=== PATIENT | female | born 1995 | race Caucasian/White ===

== ENCOUNTER 2016-04-03 23:32 | Emergency (ER) | payer MEDICAID ==
[2016-04-04] MEDS ORDERED: PENICILLIN V POTASSIUM 500 MG TAB As Ordered ONE (00:31)
--- NOTE | 2016-04-04 00:40 | EDDOCDS ---
Physician Documentation [facility] Name: Moni Toribio Age: 20 yrs Sex: Female : 1995 Arrival Date: 04/03/2016 Time: 23:32 Bed TR7 Private MD: [facility] - Adults Disposition: 04/04/16 00:24 Discharged to Home/Self Care. Impression: Streptococcal pharyngitis, Fever presenting with conditions classified elsewhere - BY HISTORY. - Condition is Stable. - Discharge Instructions: Strep Throat. - Prescriptions for Amoxicillin 875 mg Oral Tablet - take 1 tablet by ORAL route every 12 hours for 10 days; 20 tablet. magic mouthwash Mucous Membrane Solution - as directed 5 milliliters by ORAL route 3-4 times daily As needed GARGLE, SWISH, SPIT. MAALOX, LIQUID BENADRYL, VISCOUS LIDOCAINE. 1:1:1; 237 milliliter. - Medication Reconciliation, Local Pharmacy Hours form. - Follow up: Emergency Department; When: As needed; Reason: Worsening of conditions. Follow up: Private Physician; When: 2 - 3 days; Reason: Wound/Symptom Recheck, Recheck today's complaints, Continuance of care. - Problem is new. - Symptoms are unchanged. Historical: - Allergies: no known allergies; - Home Meds: 1. none - PMHx: Anxiety; Depression; PTSD; Herpes; - PSHx: none; - Social history: Smoking status: Patient uses tobacco products, light tobacco smoker. No barriers to communication noted, The patient speaks fluent [place] Islander. - Family history: Not pertinent. - : The pt / caregiver states he / she is not on anticoagulants. Home medication list is obtained from the patient. - Exposure Risk Screening:: None identified. 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 3 in. (160.02 cm) (R); Pain 10; 04/04 00:38 BP 143 / 64; Pulse 95; Resp 16; Temp 98.4(O); Pulse Ox 97% on R/A; cz 04/03 23:33 Body Mass Index 32.06 (82.10 kg, 160.02 cm) gr2 MDM: 04/03 23:37 Strep Screen, Nursing ordered. dt4 04/04 00:21 Penicillin VK 500 mg PO once ordered. dt4 00:38 Financial registration complete. pm4 Administered Medications: 00:38 Drug: Penicillin VK 500 mg [penicillin V potassium 250 mg tablet (2 tabs)] Route: PO; cz Signatures: La Hdz RN RN [facility] Ike Maxwell RN RN cz Dickerson, Laura, RN RN ld5 Kiley Sanchez PA-C PA-C dt4 Ayan Sanders, Reg Reg pm4 MTDD
--- NOTE | 2016-04-04 00:40 | EDDOCDS ---
Nurse's Notes [facility] Name: Moni Toribio Age: 20 yrs Sex: Female : 1995 Arrival Date: 04/03/2016 Time: 23:32 Bed TR7 Private MD: [facility] - Adults Diagnosis: Streptococcal pharyngitis;Fever presenting with conditions classified elsewhere-BY HISTORY Presentation: 04/03 23:45 Presenting complaint: Patient states: Sore throat since , fevers. Risk factors: [facility] Stridor is not present. Drooling is not present. Shortness of breath is not present. Cellulitis is not present. Adult Sepsis Screening: The patient does not have new or worsening altered mentation. Patient's respiratory rate is less than 22. Systolic blood pressure is greater than 100. Patient has a qSOFA score of 0- Negative Sepsis Screen. Suicide/Homicide risk assessment- the patient denies having any suicidal and/or homicidal ideations and does not present with any other emotional, behavioral or mental health complaints. Status: Patient is not a clinical services consultant or dependent. Transition of care: patient was not received from another setting of care. 23:45 Acuity: LUAN Level 4 [facility] 23:45 Method Of Arrival: Walkin/Carried/Asstd [facility] Triage Assessment: 23:47 General: Appears uncomfortable, Behavior is cooperative. Pain: Location: throat Pain mcp currently is 7 out of 10 on a pain scale. HIV screening NA for this visit Offered previously. Neurological: No deficits noted. Respiratory: Airway is patent Respiratory effort is even, unlabored. Derm: Skin is pink, warm & dry. 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 none - PMHx: Anxiety; Depression; PTSD; Herpes; - PSHx: none; - Social history: Smoking status: Patient uses tobacco products, light tobacco smoker. No barriers to communication noted, The patient speaks fluent Mohawk. - Family history: Not pertinent. - : The pt / caregiver states he / she is not on anticoagulants. Home medication list is obtained from the patient. - Exposure Risk Screening:: None identified. Screenin/05 00:39 Screening information is obtained from the patient. Fall risk: No risks identified. cz Assistance ADL's: requires no assistance with activities of daily living. Abuse/DV Screen: The patient / caregiver reports he/she is: not in a situation that causes fear, pain or injury. Nutritional screening: No deficits noted. Advance Directives: Currently, there is no health care proxy. There is no active DNR order. There is no living will. There is no Power of Director Of Early Childhood. Advance directive information has not previously been placed in an [facility] medical record. Further advance directive information is declined. home support is adequate. Assessment: 00:12 General: Appears in no apparent distress, Behavior is cooperative. Pain: Location: ld5 throat. Neurological: Level of Consciousness is awake, alert. EENT: Throat has enlarged tonsils with gag reflex present, Reports pain when swallowing. Vital Signs: 04/03 23:33 BP 127 / 61; Pulse 97; Resp 18 S; Temp 98.1(O); Pulse Ox 100% on R/A; Weight 82.1 kg gr2 (M); Height 5 ft. 3 in. (160.02 cm) (R); Pain 4/10; 04/04 00:38 BP 143 / 64; Pulse 95; Resp 16; Temp 98.4(O); Pulse Ox 97% on R/A; cz 04/03 23:33 Body Mass Index 32.06 (82.10 kg, 160.02 cm) gr2 Vitals: 04/03 23:33 Log In Time: April 03, 2016 at 23:33. gr2 04/04 00:12 Strep Screen is obtained and tested: Positive. ld5 ED Course: 04/03 23:33 Patient visited by Isaac Werner. gr2 23:33 [facility] is Private Physician. gr2 23:33 Patient moved to Waiting gr2 23:36 Patient visited by Isaac Werner. gr2 23:36 Patient moved to Pre RCE gr2 23:46 Triage Initiated [facility] 23:47 Patient visited by La Hdz RN. [facility] 02 00:00 Patient moved to MTA Wait cz 00:01 Patient moved to I3 / M3 cz 00:12 Kiley Sanchez [facility] dt4 00:12 Rakesh Montgomery DO is Attending Physician. dt4 00:12 Patient visited by Kiley Sanchez PA-C. dt4 00:13 Patient visited by Tatiana Cohen,RN. ld5 00:37 Patient moved to TR7 cz 00:39 The patient / caregiver is instructed regarding the plan of care and ED course. cz 00:39 No IV's were initiated during this patient's visit. No procedures done that require cz assistance. Administered Medications: 00:38 Drug: Penicillin VK 500 mg [penicillin V potassium 250 mg tablet (2 tabs)] Route: PO; cz Order Results: There are currently no results for this order. Outcome: 00:24 Discharge ordered by Provider. dt4 00:38 Discharge Assessment: Patient awake, alert and oriented x 3. No cognitive and/or cz functional deficits noted. Patient verbalized understanding of disposition instructions. patient administered narcotics - no. The following High Risk Discharge criteria are identified: None. Discharged to home ambulatory. Condition: stable. Discharge instructions given to patient, Instructed on discharge instructions, follow up and referral plans. medication usage, Demonstrated understanding of instructions, medications, Pt was receptive of discharge instructions/ teaching. Prescriptions given X 2. No special radiology studies were completed. Property :Personal belongings accompany Pt. 00:40 Patient left the ED. cz Signatures: La Hdz RN RN [facility] Ike Maxwell RN RN cz Dickerson, Laura,KIARA RN [id number] Isaac Werner [facility] Kiley Sanchez PA-C PA-C dt4 [facility]ITAL[facility]ame[facility]
--- NOTE | 2016-04-06 01:40 | EDDOCDS ---
Physician Documentation [facility] Name: Moni Toribio Age: 20 yrs Sex: Female : 1995 Arrival Date: 04/03/2016 Time: 23:32 Bed TR7 Private MD: [facility] - Adults Disposition: 04/04/16 00:24 Discharged to Home/Self Care. Impression: Streptococcal pharyngitis, Fever presenting with conditions classified elsewhere - BY HISTORY. - Condition is Stable. - Discharge Instructions: Strep Throat. - Prescriptions for Amoxicillin 875 mg Oral Tablet - take 1 tablet by ORAL route every 12 hours for 10 days; 20 tablet. magic mouthwash Mucous Membrane Solution - as directed 5 milliliters by ORAL route 3-4 times daily As needed GARGLE, SWISH, SPIT. MAALOX, LIQUID BENADRYL, VISCOUS LIDOCAINE. 1:1:1; 237 milliliter. - Medication Reconciliation, Local Pharmacy Hours form. - Follow up: Emergency Department; When: As needed; Reason: Worsening of conditions. Follow up: Private Physician; When: 2 - 3 days; Reason: Wound/Symptom Recheck, Recheck today's complaints, Continuance of care. - Problem is new. - Symptoms are unchanged. Historical: - Allergies: no known allergies; - Home Meds: 1. none - PMHx: Anxiety; Depression; PTSD; Herpes; - PSHx: none; - Social history: Smoking status: Patient uses tobacco products, light tobacco smoker. No barriers to communication noted, The patient speaks fluent [place]. - Family history: Not pertinent. - : The pt / caregiver states he / she is not on anticoagulants. Home medication list is obtained from the patient. - Exposure Risk Screening:: None identified. 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 3 in. (160.02 cm) (R); Pain 10; 04/04 00:38 BP 143 / 64; Pulse 95; Resp 16; Temp 98.4(O); Pulse Ox 97% on R/A; cz 04/03 23:33 Body Mass Index 32.06 (82.10 kg, 160.02 cm) gr2 MDM: 04/03 23:37 Strep Screen, Nursing ordered. dt4 04/04 00:21 Penicillin VK 500 mg PO once ordered. dt4 00:38 Financial registration complete. pm4 00:55 [facility] Payment Agreement was scanned into [employer] and attached to record. pm4 10:56 T-Sheet-- Draft Copy was scanned into [employer] and attached to record. gb Administered Medications: 00:38 Drug: Penicillin VK 500 mg [penicillin V potassium 250 mg tablet (2 tabs)] Route: PO; cz Signatures: La Hdz RN RN mcp Ike Maxwell RN RN cz Aura Mccarthy, Reg Reg gb Tatiana Cohen,RN RN ld5 Kiley Sanchez, JOSE R PANanda dt4 Ayan Sanders, Reg Reg pm4 The chart was reviewed and I authenticate all verbal orders and agree with the evaluation and treatment provided.Attachments: 00:55 [facility] Payment Agreement pm4 10:56 T-Sheet-- Draft Copy gb Chart Complete MTDD
--- NOTE | 2016-04-06 01:40 | EDDOCDS ---
Nurse's Notes [facility] Name: Moni Toribio Age: 20 yrs Sex: Female : 1995 Arrival Date: 04/03/2016 Time: 23:32 Bed TR7 Private MD: [facility] - Adults Diagnosis: Streptococcal pharyngitis;Fever presenting with conditions classified elsewhere-BY HISTORY Presentation: 04/03 23:45 Presenting complaint: Patient states: Sore throat since , fevers. Risk factors: [facility] Stridor is not present. Drooling is not present. Shortness of breath is not present. Cellulitis is not present. Adult Sepsis Screening: The patient does not have new or worsening altered mentation. Patient's respiratory rate is less than 22. Systolic blood pressure is greater than 100. Patient has a qSOFA score of 0- Negative Sepsis Screen. Suicide/Homicide risk assessment- the patient denies having any suicidal and/or homicidal ideations and does not present with any other emotional, behavioral or mental health complaints. 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 Transition of care: patient was not received from another setting of care. 23:45 Acuity: LUNA Level 4 [facility] 23:45 Method Of Arrival: Walkin/Carried/Asstd [facility] Triage Assessment: 23:47 General: Appears uncomfortable, Behavior is cooperative. Pain: Location: throat Pain mcp currently is 7 out of 10 on a pain scale. HIV screening NA for this visit Offered previously. Neurological: No deficits noted. Respiratory: Airway is patent Respiratory effort is even, unlabored. Derm: Skin is pink, warm & dry. 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 Historical: - Allergies: no known allergies; - Home Meds: 1. none - PMHx: Anxiety; Depression; PTSD; Herpes; - PSHx: none; - Social history: Smoking status: Patient uses tobacco products, light tobacco smoker. No barriers to communication noted, The patient speaks fluent Belarusian. - Family history: Not pertinent. - : The pt / caregiver states he / she is not on anticoagulants. Home medication list is obtained from the patient. - Exposure Risk Screening:: None identified. Screenin/05 00:39 Screening information is obtained from the patient. Fall risk: No risks identified. cz Assistance ADL's: requires no assistance with activities of daily living. Abuse/DV Screen: The patient / caregiver reports he/she is: not in a situation that causes fear, pain or injury. Nutritional screening: No deficits noted. Advance Directives: Currently, there is no health care proxy. There is no active DNR order. There is no living will. There is no Power of Lead Quality Technician. Advance directive information has not previously been placed in an [facility] medical record. Further advance directive information is declined. home support is adequate. Assessment: 00:12 General: Appears in no apparent distress, Behavior is cooperative. Pain: Location: ld5 throat. Neurological: Level of Consciousness is awake, alert. EENT: Throat has enlarged tonsils with gag reflex present, Reports pain when swallowing. Vital Signs: 04/03 23:33 BP 127 / 61; Pulse 97; Resp 18 S; Temp 98.1(O); Pulse Ox 100% on R/A; Weight 82.1 kg gr2 (M); Height 5 ft. 3 in. (160.02 cm) (R); Pain 4/10; 04/04 00:38 BP 143 / 64; Pulse 95; Resp 16; Temp 98.4(O); Pulse Ox 97% on R/A; cz 04/03 23:33 Body Mass Index 32.06 (82.10 kg, 160.02 cm) gr2 Vitals: 04/03 23:33 Log In Time: April 03, 2016 at 23:33. gr2 04/04 00:12 Strep Screen is obtained and tested: Positive. ld5 ED Course: 04/03 23:33 Patient visited by Isaac Werner. gr2 23:33 [facility] is Private Physician. gr2 23:33 Patient moved to Waiting gr2 23:36 Patient visited by Isaac Werner. gr2 23:36 Patient moved to Pre RCE gr2 23:[address] [facility] 23:47 Patient visited by La Hdz RN. [facility] 02 00:00 Patient moved to MTA Wait cz 00:01 Patient moved to I3 / M3 cz 00:12 [facility]iley [facility]. dt4 00:12 Rakesh Montgomery DO is Attending Physician. dt4 00:12 Patient visited by Kiley Sanchez PA-C. dt4 00:13 Patient visited by Tatiana Cohen,RN. ld5 00:37 Patient moved to TR7 cz 00:39 The patient / caregiver is instructed regarding the plan of care and ED course. cz 00:39 No IV's were initiated during this patient's visit. No procedures done that require cz assistance. 00:55 [facility] Payment Agreement was scanned into [employer] and attached to record. pm4 10:56 T-Sheet-- Draft Copy was scanned into [employer] and attached to record. gb Administered Medications: 00:38 Drug: Penicillin VK 500 mg [penicillin V potassium 250 mg tablet (2 tabs)] Route: PO; cz Order Results: There are currently no results for this order. Outcome: 00:24 Discharge ordered by Provider. dt4 00:38 Discharge Assessment: Patient awake, alert and oriented x 3. No cognitive and/or cz functional deficits noted. Patient verbalized understanding of disposition instructions. patient administered narcotics - no. The following High Risk Discharge criteria are identified: None. Discharged to home ambulatory. Condition: stable. Discharge instructions given to patient, Instructed on discharge instructions, follow up and referral plans. medication usage, Demonstrated understanding of instructions, medications, Pt was receptive of discharge instructions/ teaching. Prescriptions given X 2. No special radiology studies were completed. Property :Personal belongings accompany Pt. 00:40 Patient left the ED. cz Signatures: La Hdz, RN RN [facility] Ike Maxwell RN RN cz Aura Mccarthy, Reg Reg gb Tatiana Cohen,RN RN ld5 Isaac Werner gr2 Kiley Sanchez PA-C PA-C dt4 Ayan Sanders, Reg Reg pm4 Chart Complete MTDD
--- NOTE | 2016-04-06 01:40 | EDDOCDS ---
Physician Documentation [facility] Name: Moni Toribio Age: 20 yrs Sex: Female : 1995 Arrival Date: 04/03/2016 Time: 23:32 Bed TR7 Private MD: [facility] - Adults Disposition: 04/04/16 00:24 Discharged to Home/Self Care. Impression: Streptococcal pharyngitis, Fever presenting with conditions classified elsewhere - BY HISTORY. - Condition is Stable. - Discharge Instructions: Strep Throat. - Prescriptions for Amoxicillin 875 mg Oral Tablet - take 1 tablet by ORAL route every 12 hours for 10 days; 20 tablet. magic mouthwash Mucous Membrane Solution - as directed 5 milliliters by ORAL route 3-4 times daily As needed GARGLE, SWISH, SPIT. MAALOX, LIQUID BENADRYL, VISCOUS LIDOCAINE. 1:1:1; 237 milliliter. - Medication Reconciliation, Local Pharmacy Hours form. - Follow up: Emergency Department; When: As needed; Reason: Worsening of conditions. Follow up: Private Physician; When: 2 - 3 days; Reason: Wound/Symptom Recheck, Recheck today's complaints, Continuance of care. - Problem is new. - Symptoms are unchanged. Historical: - Allergies: no known allergies; - Home Meds: 1. none - PMHx: Anxiety; Depression; PTSD; Herpes; - PSHx: none; - Social history: Smoking status: Patient uses tobacco products, light tobacco smoker. No barriers to communication noted, The patient speaks fluent Macedonian. - Family history: Not pertinent. - : The pt / caregiver states he / she is not on anticoagulants. Home medication list is obtained from the patient. - Exposure Risk Screening:: None identified. 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 3 in. (160.02 cm) (R); Pain 10; 04/04 00:38 BP 143 / 64; Pulse 95; Resp 16; Temp 98.4(O); Pulse Ox 97% on R/A; cz 04/03 23:33 Body Mass Index 32.06 (82.10 kg, 160.02 cm) gr2 MDM: 04/03 23:37 Strep Screen, Nursing ordered. dt4 04/04 00:21 Penicillin VK 500 mg PO once ordered. dt4 00:38 Financial registration complete. pm4 00:55 [facility] Payment Agreement was scanned into [employer] and attached to record. pm4 10:56 T-Sheet-- Draft Copy was scanned into [employer] and attached to record. gb Administered Medications: 00:38 Drug: Penicillin VK 500 mg [penicillin V potassium 250 mg tablet (2 tabs)] Route: PO; cz Signatures: La Hdz RN RN mcp Ike Maxwell RN RN cz Aura Mccarthy, Reg Reg gb Tatiana Cohen,RN RN ld5 Kiley Sanchez, JOSE R PANanda dt4 Ayan Sanders, Reg Reg pm4 The chart was reviewed and I authenticate all verbal orders and agree with the evaluation and treatment provided.Attachments: 00:55 [facility] Payment Agreement pm4 10:56 T-Sheet-- Draft Copy gb Chart Complete MTDD
== END 2016-04-04 00:40 | disposition home or self-care (01) ==
LOC: M ED 23:32
DX: J02.0 Streptococcal pharyngitis (principal); R50.9 Fever, unspecified; F41.9 Anxiety disorder, unspecified; F32.9 Major depressive disorder, single episode, unspecified; F43.10 Post-traumatic stress disorder, unspecified; B00.9 Herpesviral infection, unspecified; F17.200 Nicotine dependence, unspecified, uncomplicated

== ENCOUNTER 2016-04-21 21:36 | Emergency (ER) | payer MEDICAID ==
[2016-04-21] MEDS ORDERED: diazePAM 5 MG TAB As Ordered ONE (21:54)
[2016-04-21] MEDS ORDERED: NAPROXEN 250 MG TAB As Ordered ONE (21:54)
--- NOTE | 2016-04-21 22:38 | EDDOCDS ---
Physician Documentation [facility] Name: Moni Toribio Age: 20 yrs Sex: Female : 1995 Arrival Date: 04/21/2016 Time: 21:36 Bed PD Private MD: [facility] Disposition: 04/21/16 22:26 Discharged to Home/Self Care. Impression: Sprain of interphalangeal joint of right thumb. - Condition is Stable. - Discharge Instructions: Thumb Sprain. - Prescriptions for Naprosyn 500 mg Oral Tablet - take 1 tablet by ORAL route 2 times per day take with food; 30 tablet. - Medication Reconciliation, Work Release Form - 1 day form. - Follow up: [facility]; When: Call to arrange an appointment; Reason: Wound/Symptom Recheck, Recheck today's complaints, Worsening of conditions, Continuance of care. - Problem is new. - Symptoms are unchanged. Historical: - Allergies: no known allergies; - Home Meds: 1. none - PMHx: Anxiety; Depression; Herpes; PTSD; - PSHx: none; - Social history: Smoking status: Patient uses tobacco products, current every day smoker. No barriers to communication noted, The patient speaks fluent [place]ig. - Family history: Not pertinent. - : The pt / caregiver states he / she is not on anticoagulants. Home medication list is obtained from the patient. - Exposure Risk Screening:: None identified. 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 3 in. (160.02 cm) (R); Pain 8/10; 21:37 Body Mass Index 34.72 (88.90 kg, 160.02 cm) gr2 MDM: 21:49 Fingers: thumb Ordered. EDMS 21:52 Naproxen 500 mg PO once; administer with food or milk ordered. cc10 21:52 Diazepam 5 mg PO once ordered. cc10 22:16 Financial registration complete. daniella 22:16 [facility] Payment Agreement was scanned into [employer] and attached to record. gb Administered Medications: 21:59 Drug: Naproxen 500 mg [naproxen 250 mg tablet (2 tabs)] Route: PO; ttb 21:59 Drug: Diazepam 5 mg [diazepam 5 mg tablet (1 tabs)] Route: PO; ttb 22:37 Follow up: Response: Confirmed pt not driving.; No Adverse Reaction ttb Signatures: Dispatcher [employer] EDMS Aura Mccarthy, Reg Reg gb Kimberly Becker RN RN ttb Santy Stovall, PA-C PA-C cc10 Ester EricksonRN RN tm5 The chart was reviewed and I authenticate all verbal orders and agree with the evaluation and treatment provided.Attachments: 22:16 [facility] Payment Agreement gb MTDD
--- NOTE | 2016-04-21 22:38 | EDDOCDS ---
Nurse's Notes [facility] Name: Moni Toribio Age: 20 yrs Sex: Female : 1995 Arrival Date: 04/21/2016 Time: 21:36 Bed PD Private MD: [facility] Diagnosis: Sprain of interphalangeal joint of right thumb Presentation: 04/21 21:40 Presenting complaint: Patient states: per pt was at work tonight & she had a severe tm5 cramp/spasms in her right hand & thinks that her right thumb is dislocated. Adult Sepsis Screening: The patient does not have new or worsening altered mentation. Patient's respiratory rate is less than 22. Systolic blood pressure is greater than 100. Patient has a qSOFA score of 0- Negative Sepsis Screen. Suicide/Homicide risk assessment- the patient denies having any suicidal and/or homicidal ideations and does not present with any other emotional, behavioral or mental health complaints. 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 Transition of care: patient was not received from another setting of care. 21:40 Acuity: LUNA Level 4 tm5 21:40 Method Of Arrival: Walkin/Carried/Asstd tm5 Triage Assessment: 21:42 General: Appears in no apparent distress, Behavior is appropriate for age, cooperative. tm5 Pain: Location: palmar aspect of distal phalanx of right thumb and palmar aspect of proximal phalanx of right thumb Pain currently is 5 out of 10 on a pain scale. Pt Declines HIV testing. Neurological: Level of Consciousness is awake, alert, Oriented to person, place, time. Respiratory: Airway is patent Respiratory effort is even, unlabored, Respiratory pattern is regular, symmetrical. Derm: Skin is pink, warm & dry. Musculoskeletal: Reports pain in palmar aspect of distal phalanx of right thumb and palmar aspect of proximal phalanx of right thumb. 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 none - PMHx: Anxiety; Depression; Herpes; PTSD; - PSHx: none; - Social history: Smoking status: Patient uses tobacco products, current every day smoker. No barriers to communication noted, The patient speaks fluent Kazakh. - Family history: Not pertinent. - : The pt / caregiver states he / she is not on anticoagulants. Home medication list is obtained from the patient. - Exposure Risk Screening:: None identified. Screenin:43 Screening information is obtained from the patient. Fall risk: No risks identified. tm5 Assistance ADL's: requires no assistance with activities of daily living. Abuse/DV Screen: The patient / caregiver reports he/she is: not in a situation that causes fear, pain or injury. Nutritional screening: No deficits noted. Advance Directives: Currently, there is no health care proxy. There is no active DNR order. home support is adequate. Assessment: 21:59 General: Appears in no apparent distress, well nourished, Behavior is cooperative, ttb pleasant. Pain: Location: right thumb/hand. Neurological: Level of Consciousness is awake, alert. Respiratory: No deficits noted. Derm: Skin is normal. 22:34 Reassessment: Patient appears in no apparent distress at this time. Patient states ttb feeling better. Patient states symptoms have improved. pt states she is walking home. ROM improved after meds.. Neurological: Level of Consciousness is awake, alert. Respiratory: No deficits noted. Airway is patent Respiratory effort is even, unlabored. GI: Denies nausea, vomiting. Vital Signs: 21:37 BP 131 / 73; Pulse 96; Resp 18 S; Temp 97.4(O); Pulse Ox 100% on R/A; Weight 88.9 kg gr2 (R); Height 5 ft. 3 in. (160.02 cm) (R); Pain 8/10; 21:37 Body Mass Index 34.72 (88.90 kg, 160.02 cm) gr2 Vitals: 21:37 Log In Time: April 21, 2016 at 21:37. gr2 ED Course: 21:37 Patient visited by Isaac Werner. gr2 21:37 [facility] is Private Physician. gr2 21:37 Patient moved to Waiting gr2 21:39 Patient visited by Isaac Werner. gr2 21:39 Patient moved to Pre RCE gr2 21:42 Triage Initiated tm5 21:43 Patient moved to Triage 1 tm5 21:49 [facility] cc10 21:50 Jordana Schaefer MD is Attending Physician. cc10 21:50 Patient visited by Santy Stovall PA-C. cc10 21:50 Patient visited by Santy Stovall PA-C. cc10 21:59 The patient / caregiver is instructed regarding the plan of care and ED course. Patient ttb has correct armband on for positive identification. 21:59 No IV's were initiated during this patient's visit. No procedures done that require ttb assistance. 22:00 Patient visited by Kimberly Becker RN. ttb 22:00 Patient moved to 2 ttb 22:16 [facility] Payment Agreement was scanned into [employer] and attached to record. gb 22:23 Patient moved to ttb 22:26 [facility] is Referral Physician. cc10 Administered Medications: 21:59 Drug: Naproxen 500 mg [naproxen 250 mg tablet (2 tabs)] Route: PO; ttb 21:59 Drug: Diazepam 5 mg [diazepam 5 mg tablet (1 tabs)] Route: PO; ttb 22:37 Follow up: Response: Confirmed pt not driving.; No Adverse Reaction ttb Order Results: There are currently no results for this order. Outcome: 21:59 No special radiology studies were completed. Property :Personal belongings accompany Pt.ttb 22:26 Discharge ordered by Provider. cc10 22:34 Discharge Assessment: Patient awake, alert and oriented x 3. No cognitive and/or ttb functional deficits noted. Patient verbalized understanding of disposition instructions. Patient awake and alert. patient administered narcotics - yes. Pt provided with safe discharge. The following High Risk Discharge criteria are identified: None. Discharged to home ambulatory. Condition: good Condition: stable Condition: improved. Discharge instructions given to patient, Instructed on discharge instructions, follow up and referral plans. medication usage, no driving heavy equipment, Rest, Ice, Compression and Elevation. Demonstrated understanding of instructions, medications, RICE, no d/d tonight after meds Pt was receptive of discharge instructions/ teaching. Work note provided to patient. 22:37 Patient left the ED. ttb Signatures: Aura Mccarthy, Reg Reg gb Kimberly Becker, RN RN ttb Isaac Werner gr2 Santy Stovall PA-C PA-C cc10 Matice,Ester,RN RN tm5 MTDD
--- NOTE | 2016-04-22 08:01 | REP ---
RIGHT THUMB: The bone density, osseous, joint and soft tissue structures are normal. No fracture or dislocation. IMPRESSION: Normal thumb. Unreviewed
--- NOTE | 2016-04-23 23:38 | EDDOCDS ---
Physician Documentation [facility] Name: Moni Toribio Age: 20 yrs Sex: Female : 1995 Arrival Date: 04/21/2016 Time: 21:36 Bed PD Private MD: [facility] Disposition: 04/21/16 22:26 Discharged to Home/Self Care. Impression: Sprain of interphalangeal joint of right thumb. - Condition is Stable. - Discharge Instructions: Thumb Sprain. - Prescriptions for Naprosyn 500 mg Oral Tablet - take 1 tablet by ORAL route 2 times per day take with food; 30 tablet. - Medication Reconciliation, Work Release Form - 1 day form. - Follow up: [facility]; When: Call to arrange an appointment; Reason: Wound/Symptom Recheck, Recheck today's complaints, Worsening of conditions, Continuance of care. - Problem is new. - Symptoms are unchanged. Historical: - Allergies: no known allergies; - Home Meds: 1. none - PMHx: Anxiety; Depression; Herpes; PTSD; - PSHx: none; - Social history: Smoking status: Patient uses tobacco products, current every day smoker. No barriers to communication noted, The patient speaks fluent Romanian. - Family history: Not pertinent. - : The pt / caregiver states he / she is not on anticoagulants. Home medication list is obtained from the patient. - Exposure Risk Screening:: None identified. 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 3 in. (160.02 cm) (R); Pain 8/10; 21:37 Body Mass Index 34.72 (88.90 kg, 160.02 cm) gr2 MDM: 21:49 Fingers: thumb Ordered. EDMS 21:52 Naproxen 500 mg PO once; administer with food or milk ordered. cc10 21:52 Diazepam 5 mg PO once ordered. cc10 22:16 Financial registration complete. 22:16 [facility] Payment Agreement was scanned into [employer] and attached to record. gb 04/22 18:11 T-Sheet-- Draft Copy was scanned into [employer] and attached to record. klr Administered Medications: 04/21 21:59 Drug: Naproxen 500 mg [naproxen 250 mg tablet (2 tabs)] Route: PO; ttb 21:59 Drug: Diazepam 5 mg [diazepam 5 mg tablet (1 tabs)] Route: PO; ttb 22:37 Follow up: Response: Confirmed pt not driving.; No Adverse Reaction ttb Signatures: Dispatcher [employer] EDMS Aura Mccarthy, Reg Reg gb Kimberly Becker, RN RN ttb Santy Stovall PA-C PAMeganC cc10 Divya Chauhan Tonya,RN RN tm5 The chart was reviewed and I authenticate all verbal orders and agree with the evaluation and treatment provided.Attachments: 22:16 [facility] Payment Agreement 04/22 18:11 T-Sheet-- Draft Copy klr Chart Complete MTDD
--- NOTE | 2016-04-23 23:38 | EDDOCDS ---
Physician Documentation [facility] Name: Moni Toribio Age: 20 yrs Sex: Female : 1995 Arrival Date: 04/21/2016 Time: 21:36 Bed PD Private MD: [facility] Disposition: 04/21/16 22:26 Discharged to Home/Self Care. Impression: Sprain of interphalangeal joint of right thumb. - Condition is Stable. - Discharge Instructions: Thumb Sprain. - Prescriptions for Naprosyn 500 mg Oral Tablet - take 1 tablet by ORAL route 2 times per day take with food; 30 tablet. - Medication Reconciliation, Work Release Form - 1 day form. - Follow up: [facility]; When: Call to arrange an appointment; Reason: Wound/Symptom Recheck, Recheck today's complaints, Worsening of conditions, Continuance of care. - Problem is new. - Symptoms are unchanged. Historical: - Allergies: no known allergies; - Home Meds: 1. none - PMHx: Anxiety; Depression; Herpes; PTSD; - PSHx: none; - Social history: Smoking status: Patient uses tobacco products, current every day smoker. No barriers to communication noted, The patient speaks fluent Libyan. - Family history: Not pertinent. - : The pt / caregiver states he / she is not on anticoagulants. Home medication list is obtained from the patient. - Exposure Risk Screening:: None identified. 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 3 in. (160.02 cm) (R); Pain 8/10; 21:37 Body Mass Index 34.72 (88.90 kg, 160.02 cm) gr2 MDM: 21:49 Fingers: thumb Ordered. EDMS 21:52 Naproxen 500 mg PO once; administer with food or milk ordered. cc10 21:52 Diazepam 5 mg PO once ordered. cc10 22:16 Financial registration complete. 22:16 [facility] Payment Agreement was scanned into [employer] and attached to record. gb 04/22 18:11 T-Sheet-- Draft Copy was scanned into [employer] and attached to record. klr Administered Medications: 04/21 21:59 Drug: Naproxen 500 mg [naproxen 250 mg tablet (2 tabs)] Route: PO; ttb 21:59 Drug: Diazepam 5 mg [diazepam 5 mg tablet (1 tabs)] Route: PO; ttb 22:37 Follow up: Response: Confirmed pt not driving.; No Adverse Reaction ttb Signatures: Dispatcher [employer] EDMS Aura Mccarthy, Reg Reg gb Kimberly Becker, RN RN ttb Santy Stovall PA-C PAMeganC cc10 Divya Chauhan Tonya,RN RN tm5 The chart was reviewed and I authenticate all verbal orders and agree with the evaluation and treatment provided.Attachments: 22:16 [facility] [place] Payment Agreement 04/22 18:11 T-Sheet-- Draft Copy klr Chart Complete MTDD
--- NOTE | 2016-04-23 23:38 | EDDOCDS ---
Nurse's Notes [facility] Name: Moni Toribio Age: 20 yrs Sex: Female : 1995 Arrival Date: 04/21/2016 Time: 21:36 Bed PD Private MD: [facility] Diagnosis: Sprain of interphalangeal joint of right thumb Presentation: 04/21 21:40 Presenting complaint: Patient states: per pt was at work tonight & she had a severe tm5 cramp/spasms in her right hand & thinks that her right thumb is dislocated. Adult Sepsis Screening: The patient does not have new or worsening altered mentation. Patient's respiratory rate is less than 22. Systolic blood pressure is greater than 100. Patient has a qSOFA score of 0- Negative Sepsis Screen. Suicide/Homicide risk assessment- the patient denies having any suicidal and/or homicidal ideations and does not present with any other emotional, behavioral or mental health complaints. 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 Transition of care: patient was not received from another setting of care. 21:40 Acuity: LUNA Level 4 tm5 21:40 Method Of Arrival: Walkin/Carried/Asstd tm5 Triage Assessment: 21:42 General: Appears in no apparent distress, Behavior is appropriate for age, cooperative. tm5 Pain: Location: palmar aspect of distal phalanx of right thumb and palmar aspect of proximal phalanx of right thumb Pain currently is 5 out of 10 on a pain scale. Pt Declines HIV testing. Neurological: Level of Consciousness is awake, alert, Oriented to person, place, time. Respiratory: Airway is patent Respiratory effort is even, unlabored, Respiratory pattern is regular, symmetrical. Derm: Skin is pink, warm & dry. Musculoskeletal: Reports pain in palmar aspect of distal phalanx of right thumb and palmar aspect of proximal phalanx of right thumb. 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 none - PMHx: Anxiety; Depression; Herpes; PTSD; - PSHx: none; - Social history: Smoking status: Patient uses tobacco products, current every day smoker. No barriers to communication noted, The patient speaks fluent Belarusian. - Family history: Not pertinent. - : The pt / caregiver states he / she is not on anticoagulants. Home medication list is obtained from the patient. - Exposure Risk Screening:: None identified. Screenin:43 Screening information is obtained from the patient. Fall risk: No risks identified. tm5 Assistance ADL's: requires no assistance with activities of daily living. Abuse/DV Screen: The patient / caregiver reports he/she is: not in a situation that causes fear, pain or injury. Nutritional screening: No deficits noted. Advance Directives: Currently, there is no health care proxy. There is no active DNR order. home support is adequate. Assessment: 21:59 General: Appears in no apparent distress, well nourished, Behavior is cooperative, ttb pleasant. Pain: Location: right thumb/hand. Neurological: Level of Consciousness is awake, alert. Respiratory: No deficits noted. Derm: Skin is normal. 22:34 Reassessment: Patient appears in no apparent distress at this time. Patient states ttb feeling better. Patient states symptoms have improved. pt states she is walking home. ROM improved after meds.. Neurological: Level of Consciousness is awake, alert. Respiratory: No deficits noted. Airway is patent Respiratory effort is even, unlabored. GI: Denies nausea, vomiting. Vital Signs: 21:37 BP 131 / 73; Pulse 96; Resp 18 S; Temp 97.4(O); Pulse Ox 100% on R/A; Weight 88.9 kg gr2 (R); Height 5 ft. 3 in. (160.02 cm) (R); Pain 8/10; 21:37 Body Mass Index 34.72 (88.90 kg, 160.02 cm) gr2 Vitals: 21:37 Log In Time: April 21, 2016 at 21:37. gr2 ED Course: 21:37 Patient visited by Isaac Werner. gr2 21:37 [facility] is Private Physician. gr2 21:37 Patient moved to Waiting gr2 21:39 Patient visited by Isaac Werner. gr2 21:39 Patient moved to Pre RCE gr2 21:42 Triage Initiated tm5 21:43 Patient moved to Triage 1 tm5 21:49 [facility] St[facility]all [facility] cc10 21:50 Jordana Schaefer MD is Attending Physician. cc10 21:50 Patient visited by Santy Stovall PA-C. cc10 21:50 Patient visited by Santy Stovall PA-C. cc10 21:59 The patient / caregiver is instructed regarding the plan of care and ED course. Patient ttb has correct armband on for positive identification. 21:59 No IV's were initiated during this patient's visit. No procedures done that require ttb assistance. 22:00 Patient visited by Kimberly Becker RN. ttb 22:00 Patient moved to TR2 ttb 22:16 [facility] Payment Agreement was scanned into [employer] and attached to record. 22: Patient moved to PD ttb 22:26 [facility] is Referral Physician. cc10 04/22 08:33 Fingers: thumb Returned. EDMS 18:11 T-Sheet-- Draft Copy was scanned into [employer] and attached to record. klr Administered Medications: 04/21 21:59 Drug: Naproxen 500 mg [naproxen 250 mg tablet (2 tabs)] Route: PO; ttb 21:59 Drug: Diazepam 5 mg [diazepam 5 mg tablet (1 tabs)] Route: PO; ttb 22:37 Follow up: Response: Confirmed pt not driving.; No Adverse Reaction ttb Order Results: Radiology Order: Fingers: thumb Test: Fingers: thumb REASON FOR EXAMINATION: Deformity/Swelling; ; RIGHT THUMB:; ; The bone density, osseous, joint and soft tissue structures are normal.; ; No fracture or dislocation.; ; IMPRESSION:; Normal thumb.; ; ; ; Unreviewed; Outcome: 21:59 No special radiology studies were completed. Property :Personal belongings accompany Pt.ttb 22:26 Discharge ordered by Provider. cc10 22:34 Discharge Assessment: Patient awake, alert and oriented x 3. No cognitive and/or ttb functional deficits noted. Patient verbalized understanding of disposition instructions. Patient awake and alert. patient administered narcotics - yes. Pt provided with safe discharge. The following High Risk Discharge criteria are identified: None. Discharged to home ambulatory. Condition: good Condition: stable Condition: improved. Discharge instructions given to patient, Instructed on discharge instructions, follow up and referral plans. medication usage, no driving heavy equipment, Rest, Ice, Compression and Elevation. Demonstrated understanding of instructions, medications, RICE, no d/d tonight after meds Pt was receptive of discharge instructions/ teaching. Work note provided to patient. 22:37 Patient left the ED. ttb Signatures: Dispatcher [employer] EDMS Aura Mccarthy, Reg Reg Kimberly Willson, RN RN ttb Isaac Werner gr2 Santy Stovall PAMeganC PA-C cc10 Divya Chauhan Tonya,RN RN tm5 Chart Complete MTDD
== END 2016-04-21 22:37 | disposition home or self-care (01) ==
LOC: M ED 21:36
DX: M79.644 Pain in right finger(s) (principal); F41.9 Anxiety disorder, unspecified; F32.9 Major depressive disorder, single episode, unspecified; B00.9 Herpesviral infection, unspecified; F43.10 Post-traumatic stress disorder, unspecified; F17.210 Nicotine dependence, cigarettes, uncomplicated

== ENCOUNTER 2016-04-30 15:54 | Emergency (ER) | payer MEDICAID ==
[~2016-04-30] VITALS: Ht 160 cm; Wt 88.9 kg
[2016-04-30] MEDS ORDERED: ALEV220C2 PO (16:01)
[2016-04-30 16:59] VITALS: BP 125/71
--- NOTE | 2016-04-30 17:03 | REP ---
RIGHT HAND, FOUR VIEWS: There is no evidence of an acute fracture, dislocation or intrinsic bone disease. IMPRESSION: No fracture or dislocation. Signed by Theodore Olson MD 04/30/2016 08:37 P
[2016-04-30] MEDS ORDERED: NAPR500T PO (17:26)
== END 2016-04-30 17:43 | disposition home or self-care (01) ==
LOC: M ED 16:41
DX: M25.541 Pain in joints of right hand (principal); F17.210 Nicotine dependence, cigarettes, uncomplicated

== ENCOUNTER 2016-05-11 11:02 | Emergency (ER) | payer MEDICAID ==
[~2016-05-11] VITALS: Ht 160 cm; Wt 88.9 kg
[~2016-05-11 11:02] MED LIST: ALEV220C2 PO; NAPR500T PO
[2016-05-11 11:07] VITALS: BP 142/81
== END 2016-05-11 12:41 | disposition home or self-care (01) ==
LOC: M ED 11:18
DX: J06.9 Acute upper respiratory infection, unspecified (principal); F17.210 Nicotine dependence, cigarettes, uncomplicated

== ENCOUNTER 2016-07-23 17:14 | Emergency (ER) | payer MEDICAID ==
[~2016-07-23] VITALS: Ht 157.5 cm; Wt 81.6 kg
[2016-07-23] MEDS ORDERED: KETOROLAC 60 MG/2 ML VIAL (J1885) IM ONE (17:45)
[2016-07-23 19:06] VITALS: BP 111/71
--- NOTE | 2016-08-05 09:24 | REP ---
Clinical: Left lower quadrant/adnexal pain . Technique: Transabdominal pelvic ultrasound followed by transvaginal examination for better evaluation of the endometrium and adnexa with color Doppler evaluation of the ovaries. Findings: Bladder is unremarkable and measures 4.1 x 2.4 x 2.1 cm . Normal anteverted uterus measures 7.6 x 3.0 x 3.7 cm . The endometrial complex measures 4.5 mm thickness. No discrete uterine or endometrial abnormalities are appreciated. Bilateral ovaries are normal in appearance and vascularity without evidence for torsion. Right ovary measures 3.0 x 1.2 x 1.6 cm ; R I = 0.51 . Left ovary measures 2.5 x 2.6 x 3.0 cm with 2.3 cm dominant follicle ; R I = 0.50 . No pelvic fluid or adnexal mass lesion . Impression: 1. Dominant follicle in the left ovary. Otherwise normal ovaries without torsion. 2. Normal uterus. No free fluid. Signed by Jovanny Storm MD 07/23/2016 06:53 P
== END 2016-07-23 19:04 | disposition home or self-care (01) ==
LOC: M ED 17:45
DX: N94.6 Dysmenorrhea, unspecified (principal)
CPT/HCPCS: 76830; 76856; 81001; 81025; 87210; 87491; 87591; 93976; 96372; 99284; J1885

== ENCOUNTER 2016-10-13 15:05 | Emergency (ER) | payer MEDICAID ==
[~2016-10-13] VITALS: Ht 157.5 cm; Wt 93.1 kg
[2016-10-13 16:58] VITALS: BP 128/63
== END 2016-10-13 16:59 | disposition home or self-care (01) ==
LOC: M ED 15:05
DX: R25.1 Tremor, unspecified (principal); Z72.0 Tobacco use

== ENCOUNTER 2016-10-29 11:05 | Emergency (ER) | payer MEDICAID ==
[~2016-10-29] VITALS: Ht 157.5 cm; Wt 81.8 kg
[2016-10-29] MEDS ORDERED: NS 1,000 ML IV ONE (12:30)
[2016-10-29] MEDS ORDERED: KETOROLAC 30 MG/ML VIAL (J1885) IV ONE (12:30)
[2016-10-29] MEDS ORDERED: ONDANSETRON 4MG/2ML VIAL (J2405) IV ONE (12:30)
[2016-10-29 13:03] LABS: BASO % 0.2 % (0.0-1.0); EOS # 0.2 K/mm3 (0.0-0.50); EOS % 1.3 % (0.0-3.0); LARGE UNSTAINED CELL # 0.2 K/mm3 (0.0-0.4); LARGE UNSTAINED CELL % 1.4 % (0.0-4.0); LYMPH % 18.3 % (24.0-44.0); MEAN CORPUSCULAR HEMOGLOBIN 31.3 pg (27.0-33.0); MEAN CORPUSCULAR HGB CONC 33.7 g/dl (32.0-36.5); MEAN CORPUSCULAR VOLUME 92.9 fl (80.0-96.0); MONO # 0.7 K/mm3 (0.0-0.8); MONO % 4.5 % (0.0-5.0); NEUTROPHILS # 11.4 K/mm3 (1.8-7.7); NEUTROPHILS % 74.2 % (36.0-66.0); PLATELET COUNT, AUTOMATED 180 k/mm3 (150-450); WHITE BLOOD COUNT 15.4 K/mm3 (4.0-10.0)
[2016-10-29 13:15] LABS: CONTROL LINE MONO INT CTR LINE PRESENT
[2016-10-29 13:21] LABS: ALBUMIN 3.7 GM/DL (3.2-5.2); ALBUMIN/GLOBULIN RATIO 0.82 (1.00-1.93); ALKALINE PHOSPHATASE 99 U/L (45-117); ALT/SGPT 15 U/L (12-78); ANION GAP 5 MEQ/L (8-16); AST/SGOT 9 U/L (15-37); BILIRUBIN,DIRECT < 0.1 MG/DL (0.0-0.2); BILIRUBIN,TOTAL 0.2 MG/DL (0.2-1.0); BLOOD UREA NITROGEN 9 MG/DL (7-18); CALCIUM LEVEL 8.4 MG/DL (8.5-10.1); CARBON DIOXIDE LEVEL 30 MEQ/L (21-32); CHLORIDE LEVEL 105 MEQ/L (98-107); CREATININE FOR GFR 0.99 MG/DL (0.55-1.02); GLOMERULAR FILTRATION RATE > 60.0 (>60); GLUCOSE, FASTING 83 MG/DL (70-105); POTASSIUM SERUM 3.6 MEQ/L (3.5-5.1); SODIUM LEVEL 140 MEQ/L (136-145); TOTAL PROTEIN 8.2 GM/DL (6.4-8.2)
[2016-10-29] MEDS ORDERED: ISOVUE-370 76% 100ML VIAL (Q9967) As Ordered ONE (13:37)
[2016-10-29] MEDS ORDERED: CIPR-249 PO (14:32)
[2016-10-29] MEDS ORDERED: ZOFR4TAB3 PO (14:33)
[2016-10-29 14:44] VITALS: BP 103/64
--- NOTE | 2016-10-29 19:02 | REP ---
CT abdomen pelvis with IV but without oral contrast: History: Left-sided abdominal pain. Comparison study: 05/29/2014. CT contrast dose: 100 ml of intravenous Isovue [address] findings: Digital preliminary bookseamer blindstitch radiograph is unremarkable. The lung bases show minimal linear density consistent with fibrosis versus plate-like atelectasis in the left lower lobe. No pleural effusion is evident. The liver and the spleen are normal in size homogeneous in texture. No adrenal lesion is seen. The gallbladder is contracted and unremarkable. No pancreatic abnormality is observed. Small and large intestinal bowel loops are normal in the abdomen and pelvis. A normal appendix is seen in the right lower abdomen. Normal-sized mesenteric lymph nodes are seen in small bowel mesentery. Urinary bladder is unremarkable. The uterus is tipped somewhat to the right but is intact. There is a small cyst 2.7 cm in diameter in the right ovary. No abdominal wall defect is seen. Bone window settings show no bony destructive lesion. Impression: 2.7 cm follicle cyst right ovary. Normal appendix seen. No acute abdominal or pelvic abnormality. Signed by Costa Cueto MD 11/02/2016 08:18 A
== END 2016-10-29 14:50 | disposition home or self-care (01) ==
LOC: M ED 11:05
DX: N39.0 Urinary tract infection, site not specified (principal); Z72.0 Tobacco use
CPT/HCPCS: 74177; 80048; 80076; 81001; 83690; 85025; 86308; 87086; 96374; 96375; 99283; J1885; J2405; Q9967

== ENCOUNTER 2017-04-05 13:21 | Emergency (ER) | payer MEDICAID ==
[2017-04-05 15:57] LABS: BASO # 0.1 10^3/uL (0.0-0.2); BASO % 0.3 % (0.0-1.0); EOS # 0.2 10^3/uL (0.0-0.50); EOS % 1.1 % (0.0-3.0); HEMATOCRIT 39.9 % (36.0-47.0); HEMOGLOBIN 13.4 g/dl (12.0-16.0); IMMATURE GRANULOCYTE # 0.1 10^3/uL (0-0); IMMATURE GRANULOCYTE % 0.3 % (0-0); LYMPH # 3.2 10^3/uL (1.5-6.5); LYMPH % 21.3 % (24.0-44.0); MEAN CORPUSCULAR HEMOGLOBIN 30.1 pg (27.0-33.0); MEAN CORPUSCULAR HGB CONC 33.6 g/dl (32.0-36.5); MEAN CORPUSCULAR VOLUME 89.7 fl (80.0-96.0); MONO # 0.9 10^3/uL (0.0-0.8); MONO % 5.7 % (0.0-5.0); NEUTROPHILS # 10.6 10^3/uL (1.8-7.7); NEUTROPHILS % 71.3 % (36.0-66.0); PLATELET COUNT, AUTOMATED 191 10^3/uL (150-450); RED BLOOD COUNT 4.45 10^6/uL (4.00-5.40); RED CELL DISTRIBUTION WIDTH 13.3 % (11.5-14.5); WHITE BLOOD COUNT 14.9 10^3/uL (4.0-10.0)
[2017-04-05 16:10] LABS: KETONE, URINE AUTO RFX NEGATIVE (NEGATIVE); LEUKOCYTE ESTERASE UR AUTO RFX 3+ (NEGATIVE); NITRITE, URINE AUTO RFX NEGATIVE (NEGATIVE); RBC, URINE AUTO RFX 6 /HPF (0-3); SPECIFIC GRAVITY UR AUTO RFX 1.021 (1.002-1.035); SQUAM EPITHELIAL CELL UR AURFX 12 /HPF (0-6); WBC, URINE AUTO RFX 23 /HPF (0-3)
[2017-04-05 16:14] LABS: CONTROL LINE HCG INT CTR LINE PRESENT; HCG, SERUM QUALITATIVE NEGATIVE (NEGATIVE)
[2017-04-05 16:21] LABS: ANION GAP 6 MEQ/L (8-16); BLOOD UREA NITROGEN 13 MG/DL (7-18); CALCIUM LEVEL 8.4 MG/DL (8.5-10.1); CARBON DIOXIDE LEVEL 28 MEQ/L (21-32); CHLORIDE LEVEL 105 MEQ/L (98-107); CREATININE FOR GFR 0.61 MG/DL (0.55-1.30); GLOMERULAR FILTRATION RATE > 60.0 (>60); GLUCOSE, FASTING 88 MG/DL (70-100); POTASSIUM SERUM 3.9 MEQ/L (3.5-5.1); SODIUM LEVEL 139 MEQ/L (136-145)
[2017-04-05] MEDS ORDERED: ISOVUE-370 76% 100ML VIAL (Q9967) As Ordered (16:24)
== END 2017-04-05 17:57 | disposition home or self-care (01) ==
LOC: M ED 13:21
DX: N30.01 Acute cystitis with hematuria (principal); F90.9 Attention-deficit hyperactivity disorder, unspecified type; F41.9 Anxiety disorder, unspecified; F33.9 Major depressive disorder, recurrent, unspecified; F17.210 Nicotine dependence, cigarettes, uncomplicated; Z86.69 Personal history of other diseases of the nervous system and sense organs
CPT/HCPCS: Q9967

== ENCOUNTER 2021-07-20 11:51 | Emergency (ER) | payer MEDICAID, OTHER ==
[~2021-07-20] VITALS: Ht 157.5 cm; Wt 96.0 kg
[2021-07-20 11:51] VITALS: BP 128/74
[~2021-07-20 11:51] MED LIST changes: +AMOX875T; +BACT800T5 PO; +CIPR-249 PO; +NAPR-837 PO; -NAPR500T PO; +PYRI1TAB5 PO; +VENTAER IN; +ZOFR4TAB14 PO
== END 2021-07-20 13:58 | disposition home or self-care (01) ==
LOC: M ED 11:51
DX: S60.212A Contusion of left wrist, initial encounter (principal); W23.0XXA Caught, crushed, jammed, or pinched between moving objects, initial encounter; Y92.89 Other specified places as the place of occurrence of the external cause; Y99.0 Civilian activity done for income or pay; F41.9 Anxiety disorder, unspecified; F43.10 Post-traumatic stress disorder, unspecified; F17.210 Nicotine dependence, cigarettes, uncomplicated

== ENCOUNTER 2022-03-13 02:23 | Emergency (ER) | payer MEDICAID, OTHER ==
[~2022-03-13] VITALS: Ht 157.5 cm; Wt 94.6 kg
[2022-03-13 02:24] VITALS: BP 144/99
== END 2022-03-13 04:04 | disposition left against medical advice (07) ==
LOC: M ED 02:23
DX: Z53.21 Procedure and treatment not carried out due to patient leaving prior to being seen by health care provider (principal)

== ENCOUNTER 2022-06-11 12:06 | Inpatient (IN) | payer OTHER, SELFPAY ==
[~2022-06-11] VITALS: Ht 157.5 cm; Wt 96.9 kg
[2022-06-11] MEDS ORDERED: ISOVUE-370 76% 100ML VIAL As Ordered ONE (14:24)
[2022-06-11 14:36] LABS: BASO # 0.1 10^3/uL (0.0-0.2); BASO % 0.4 % (0.0-1.0); EOS # 0.2 10^3/uL (0.0-0.5); HEMOGLOBIN 13.4 g/dl (12.0-15.5); LYMPH # 3.5 10^3/uL (1.5-5.0); LYMPH % 20.6 % (24.0-44.0); MEAN CORPUSCULAR HEMOGLOBIN 30.5 pg (27.0-33.0); MEAN CORPUSCULAR HGB CONC 32.7 g/dl (32.0-36.5); MEAN CORPUSCULAR VOLUME 93.2 fl (80.0-96.0); MONO # 0.7 10^3/uL (0.0-0.8); NEUTROPHILS # 12.6 10^3/uL (1.5-8.5); NEUTROPHILS % 73.7 % (36.0-66.0); PLATELET COUNT, AUTOMATED 229 10^3/uL (150-450); WHITE BLOOD COUNT 17.2 10^3/uL (4.0-10.0)
[2022-06-11 15:08] LABS: RSV AMPLIFICATION NEGATIVE (NEGATIVE)
[2022-06-11 15:09] LABS: MONO SCRN NEGATIVE (NEGATIVE)
[2022-06-11] MEDS ORDERED: PIPERACILLIN/TAZOBACTAM SOD 4.5 GM in D5W MINI-BAG PLUS 50 ML IV ONE (15:25)
[2022-06-11] MEDS ORDERED: ACETAMINOPHEN 500 MG TAB PO PRN (16:20)
[2022-06-11] MEDS ORDERED: oxyCODONE 5MG TAB PO PRN (16:20)
[2022-06-11] MEDS ORDERED: KETOROLAC 30 MG/ML 1ML VIAL IV PRN (16:20)
[2022-06-11] MEDS ORDERED: PROMETHAZINE 25MG/ML 1ML VIAL IV PRN (16:20)
[2022-06-11] MEDS ORDERED: SENOKOT S TAB PO PRN (16:25)
[2022-06-11] MEDS ORDERED: NICOTINE 21MG/24HR 1 EA TRANSDERMAL TD ONE (16:40)
[2022-06-11] MEDS ORDERED: NS 1,000 ML IV ONE (17:15)
[2022-06-11] MEDS ORDERED: KETOROLAC 30 MG/ML 1ML VIAL IV ONE (17:15)
[2022-06-11] MEDS ORDERED: MIDOTAB PO (17:17)
[2022-06-11] MEDS ORDERED: HOME MED LIST COMPLETE! XX SCH (17:20)
[2022-06-11] MEDS ORDERED: VANCOMYCIN HCL 1,000 MG, VIAL MATE ADAPTER 1 EACH in NS 250 ML IV ONE (17:30)
[2022-06-11 18:00] VITALS: BP 146/87
[2022-06-11] MEDS: LACTOBACILLUS ACIDOPHILUS CAP (BACID) PO SCH (18:38)
[2022-06-11 22:00] VITALS: BP 142/86
[2022-06-11] MEDS: VANCOMYCIN HCL 1,000 MG, VIAL MATE ADAPTER 1 EACH in NS 250 ML IV SCH (23:10)
[2022-06-12] MEDS: NS 1,000 ML IV SCH ×2 (00:10→04:15)
[2022-06-12] MEDS: PIPERACILLIN/TAZOBACTAM SOD 4.5 GM in D5W MINI-BAG PLUS 50 ML IV SCH ×3 (00:27→17:07)
[2022-06-12 06:00] VITALS: BP 137/84
[2022-06-12] MEDS: VANCOMYCIN HCL 1,000 MG, VIAL MATE ADAPTER 1 EACH in NS 250 ML IV SCH ×3 (06:12→20:35)
[2022-06-12 07:44] LABS: BASO % 0.1 % (0.0-1.0); HEMATOCRIT 40.5 % (36.0-47.0); HEMOGLOBIN 13.3 g/dl (12.0-15.5); LYMPH # 1.1 10^3/uL (1.5-5.0); LYMPH % 7.7 % (24.0-44.0); MEAN CORPUSCULAR HEMOGLOBIN 30.7 pg (27.0-33.0); MEAN CORPUSCULAR HGB CONC 32.8 g/dl (32.0-36.5); MEAN CORPUSCULAR VOLUME 93.5 fl (80.0-96.0); MONO # 0.1 10^3/uL (0.0-0.8); MONO % 0.3 % (2.0-8.0); NEUTROPHILS # 13.4 10^3/uL (1.5-8.5); NEUTROPHILS % 91.4 % (36.0-66.0); PLATELET COUNT, AUTOMATED 219 10^3/uL (150-450); RED BLOOD COUNT 4.33 10^6/uL (4.00-5.40); WHITE BLOOD COUNT 14.6 10^3/uL (4.0-10.0)
[2022-06-12] MEDS ORDERED: LORazepam 2 MG/ML 1ML VIAL IV STA (07:49)
[2022-06-12] MEDS ORDERED: LORazepam 2 MG/ML 1ML VIAL IV PRN (07:50)
[2022-06-12] MEDS ORDERED: ALPRAZolam 0.5 MG TAB PO PRN (07:55)
[2022-06-12 07:56] LABS: ERYTHROCYTE SEDIMENTATION RATE 97 mm/hr (0-20)
[2022-06-12 08:08] LABS: BLOOD UREA NITROGEN 8 MG/DL (9-23); CALCIUM LEVEL 7.9 MG/DL (8.5-10.1); CARBON DIOXIDE LEVEL 25 MMOL/L (20-31); CHLORIDE LEVEL 108 MMOL/L (98-107); CREATININE FOR GFR 0.52 MG/DL (0.55-1.30); GLOMERULAR FILTRATION RATE > 60.0 (>60); GLUCOSE, FASTING 162 MG/DL (60-100); SODIUM LEVEL 138 MMOL/L (136-145)
[2022-06-12] MEDS: LACTOBACILLUS ACIDOPHILUS CAP (BACID) PO SCH ×2 (08:21→17:06)
[2022-06-12] MEDS ORDERED: NICOTINE POLACRILEX 2 MG GUM PO ONE (09:00)
[2022-06-12] MEDS: NICOTINE POLACRILEX 2 MG GUM PO PRN (17:07)
[2022-06-12 22:00] VITALS: BP_SYST 137; BP_SYST 143; BP_DIAS 84; BP_DIAS 85
[2022-06-12] MEDS ORDERED: CHLORASEPTIC SPRAY MT PRN (22:30)
[2022-06-13] MEDS: PIPERACILLIN/TAZOBACTAM SOD 4.5 GM in D5W MINI-BAG PLUS 50 ML IV SCH ×2 (01:11→08:20)
[2022-06-13 05:32] LABS: BASO % 0.1 % (0.0-1.0); HEMATOCRIT 37.2 % (36.0-47.0); HEMOGLOBIN 12.3 g/dl (12.0-15.5); LYMPH # 1.6 10^3/uL (1.5-5.0); LYMPH % 5.6 % (24.0-44.0); MEAN CORPUSCULAR HEMOGLOBIN 30.8 pg (27.0-33.0); MEAN CORPUSCULAR HGB CONC 33.1 g/dl (32.0-36.5); MONO # 0.5 10^3/uL (0.0-0.8); MONO % 1.6 % (2.0-8.0); NEUTROPHILS % 91.9 % (36.0-66.0); PLATELET COUNT, AUTOMATED 211 10^3/uL (150-450); WHITE BLOOD COUNT 28.3 10^3/uL (4.0-10.0)
[2022-06-13] MEDS: NICOTINE POLACRILEX 2 MG GUM PO PRN (05:41)
[2022-06-13] MEDS: VANCOMYCIN HCL 1,000 MG, VIAL MATE ADAPTER 1 EACH in NS 250 ML IV SCH (05:41)
[2022-06-13 05:55] LABS: BLOOD UREA NITROGEN 8 MG/DL (9-23); CALCIUM LEVEL 7.6 MG/DL (8.5-10.1); CARBON DIOXIDE LEVEL 25 MMOL/L (20-31); CHLORIDE LEVEL 113 MMOL/L (98-107); CREATININE FOR GFR 0.59 MG/DL (0.55-1.30); GLOMERULAR FILTRATION RATE > 60.0 (>60); GLUCOSE, FASTING 140 MG/DL (60-100); POTASSIUM SERUM 3.9 MMOL/L (3.5-5.1); SODIUM LEVEL 143 MMOL/L (136-145)
[2022-06-13 06:00] VITALS: BP 147/76
[2022-06-13] MEDS ORDERED: CLEO300C2 PO (07:26)
[2022-06-13] MEDS ORDERED: BACI1CAP PO (07:26)
[2022-06-13] MEDS ORDERED: NICO1KIT TOP (07:26)
[2022-06-13] MEDS ORDERED: RISATAB3 PO (07:26)
[2022-06-13] MEDS ORDERED: PRED20TA PO (07:27)
[2022-06-13] MEDS ORDERED: SENO8.6T10 PO (07:33)
[2022-06-13] MEDS ORDERED: OXYC1TAB23 PO (07:33)
[2022-06-13] MEDS ORDERED: AZIT-12 PO (07:51)
[2022-06-13] MEDS: LACTOBACILLUS ACIDOPHILUS CAP (BACID) PO SCH (08:20)
[2022-06-13] MEDS ORDERED: VANCOMYCIN HCL 500 MG in D5W MINI-BAG PLUS 100 ML IV SCH (10:00)
[2022-06-13] MEDS ORDERED: VANCOMYCIN HCL 750 MG, VIAL MATE ADAPTER 1 EACH in D5W 250 ML IV SCH (11:00)
== END 2022-06-13 13:00 | disposition home or self-care (01) | DRG 663 ==
LOC: M ED 12:06 → M ED INP 16:14 → ENRESERV 16:46 → M MS5PR 18:00
PROVIDERS: ADMIT General Practice; ATTEND General Practice
DX: L04.0 Acute lymphadenitis of face, head and neck (principal); L03.221 Cellulitis of neck; E66.9 Obesity, unspecified; F17.210 Nicotine dependence, cigarettes, uncomplicated; Z20.822 Contact with and (suspected) exposure to COVID-19; F41.9 Anxiety disorder, unspecified; Z68.39 Body mass index [BMI] 39.0-39.9, adult

== ENCOUNTER 2022-07-15 12:50 | Inpatient (IN) | payer SELFPAY ==
[~2022-07-15] VITALS: Ht 157.5 cm; Wt 96.8 kg
[~2022-07-15 12:50] MED LIST changes: +AZIT-12 PO; +BACI1CAP PO; +CLEO300C2 PO; +MIDOTAB PO; +NICO1KIT TOP; +OXYC1TAB23 PO; +PRED20TA PO; +RISATAB3 PO; +SENO8.6T10 PO
[2022-07-15] MEDS ORDERED: IBUP200T46 PO (13:01)
[2022-07-15 13:47] LABS: BASO # 0.1 10^3/uL (0.0-0.2); BASO % 0.2 % (0.0-1.0); HEMATOCRIT 37.6 % (36.0-47.0); HEMOGLOBIN 12.5 g/dl (12.0-15.5); LYMPH # 2.5 10^3/uL (1.5-5.0); LYMPH % 10.8 % (24.0-44.0); MEAN CORPUSCULAR HEMOGLOBIN 30.5 pg (27.0-33.0); MEAN CORPUSCULAR HGB CONC 33.2 g/dl (32.0-36.5); MEAN CORPUSCULAR VOLUME 91.7 fl (80.0-96.0); MONO % 8.3 % (2.0-8.0); NEUTROPHILS # 18.8 10^3/uL (1.5-8.5); NEUTROPHILS % 80.3 % (36.0-66.0); PLATELET COUNT, AUTOMATED 149 10^3/uL (150-450); WHITE BLOOD COUNT 23.4 10^3/uL (4.0-10.0)
[2022-07-15 14:15] LABS: LIPASE 21 U/L (12-53)
[2022-07-15 14:18] LABS: ALBUMIN 3.2 G/DL (3.2-5.2); ALKALINE PHOSPHATASE 81 U/L (46-116); ALT/SGPT 15 U/L (7.0-40); AST/SGOT 16 U/L (<34); BILIRUBIN,DIRECT 0.2 MG/DL (<0.4); BILIRUBIN,TOTAL 0.5 MG/DL (0.3-1.2); BLOOD UREA NITROGEN 12 MG/DL (9-23); CALCIUM LEVEL 7.9 MG/DL (8.5-10.1); CARBON DIOXIDE LEVEL 24 MMOL/L (20-31); CHLORIDE LEVEL 104 MMOL/L (98-107); CREATININE FOR GFR 0.77 MG/DL (0.55-1.30); GLOMERULAR FILTRATION RATE > 60.0 (>60); GLUCOSE, FASTING 91 MG/DL (60-100); POTASSIUM SERUM 3.4 MMOL/L (3.5-5.1); SODIUM LEVEL 136 MMOL/L (136-145); TOTAL PROTEIN 6.8 G/DL (5.7-8.2)
[2022-07-15 14:20] LABS: RSV AMPLIFICATION NEGATIVE (NEGATIVE)
[2022-07-15] MEDS ORDERED: MORPHINE 4 MG/ML 1ML VIAL IV ONE (14:20)
[2022-07-15] MEDS ORDERED: ONDANSETRON 4MG 2ML VIAL IV ONE (14:20)
[2022-07-15] MEDS ORDERED: NS IV ONE (14:20)
[2022-07-15 14:22] LABS: MONO # 1.9 10^3/uL (0.0-0.8)
[2022-07-15 14:26] LABS: HCG, SERUM QUALITATIVE NEGATIVE (NEGATIVE)
[2022-07-15] MEDS ORDERED: NS 1,000 ML IV ONE ×2 (15:40→18:00)
[2022-07-15] MEDS ORDERED: ISOVUE-370 76% 100ML VIAL As Ordered ONE (15:41)
[2022-07-15] MEDS ORDERED: cefTRIAXone SOD 1 GM in D5W MINI-BAG PLUS 50 ML IV ONE (17:55)
[2022-07-15] MEDS ORDERED: ONDANSETRON 4MG 2ML VIAL IV PRN (18:10)
[2022-07-15] MEDS ORDERED: MORPHINE 2 MG/ML 1ML VIAL IV PRN (18:10)
[2022-07-15] MEDS ORDERED: IBUP-1720 PO (19:34)
[2022-07-15] MEDS ORDERED: HOME MED LIST COMPLETE! XX SCH (19:35)
[2022-07-15] MEDS: ACETAMINOPHEN TAB 650MG DOSE (2X325MG) PO PRN (19:50)
[2022-07-15] MEDS: NS 1,000 ML IV SCH ×2 (19:50→23:55)
[2022-07-15 21:33] VITALS: BP 115/80
[2022-07-15 22:27] VITALS: BP 115/80
[2022-07-16] MEDS: cefTRIAXone SOD 2 GM in D5W MINI-BAG PLUS 50 ML IV SCH (05:20)
[2022-07-16 06:00] VITALS: BP 111/65
[2022-07-16 06:56] LABS: HEMATOCRIT 31.4 % (36.0-47.0); MEAN CORPUSCULAR HEMOGLOBIN 31.2 pg (27.0-33.0); MEAN CORPUSCULAR HGB CONC 33.4 g/dl (32.0-36.5); MEAN CORPUSCULAR VOLUME 93.2 fl (80.0-96.0); PLATELET COUNT, AUTOMATED 119 10^3/uL (150-450); RED BLOOD COUNT 3.37 10^6/uL (4.00-5.40); WHITE BLOOD COUNT 25.8 10^3/uL (4.0-10.0)
[2022-07-16 06:59] LABS: HEMOGLOBIN 10.5 g/dl (12.0-15.5)
[2022-07-16 07:21] LABS: ALBUMIN 2.2 G/DL (3.2-5.2); ALKALINE PHOSPHATASE 83 U/L (46-116); ALT/SGPT 14 U/L (7.0-40); AST/SGOT 13 U/L (<34); BILIRUBIN,TOTAL 0.5 MG/DL (0.3-1.2); BLOOD UREA NITROGEN 6 MG/DL (9-23); CALCIUM LEVEL 6.5 MG/DL (8.5-10.1); CARBON DIOXIDE LEVEL 23 MMOL/L (20-31); CHLORIDE LEVEL 111 MMOL/L (98-107); CREATININE FOR GFR 0.61 MG/DL (0.55-1.30); GLOMERULAR FILTRATION RATE > 60.0 (>60); GLUCOSE, FASTING 105 MG/DL (60-100); MAGNESIUM LEVEL 1.6 MG/DL (1.8-2.4); POTASSIUM SERUM 3.4 MMOL/L (3.5-5.1); SODIUM LEVEL 142 MMOL/L (136-145); TOTAL PROTEIN 5.3 G/DL (5.7-8.2)
[2022-07-16] MEDS ORDERED: MAG SULF 1GM/100ML (MAG RUN) 1 GM in IV 1 EA IV ONE (08:00)
[2022-07-16] MEDS: ACETAMINOPHEN TAB 650MG DOSE (2X325MG) PO PRN ×2 (08:27→18:15)
[2022-07-16] MEDS ORDERED: KCL 10MEQ/100ML SWI (KRUN) 10 MEQ in IV 1 EA IV ONE (09:00)
[2022-07-16] MEDS: HEPARIN SOD (PORCINE) 5000UNITS/ML 1ML VIAL/SYRINGE SQ SCH ×2 (13:58→19:53)
[2022-07-16] MEDS: NS 1,000 ML IV SCH (13:58)
[2022-07-16 14:00] VITALS: BP 127/76
[2022-07-16 22:00] VITALS: BP 137/86
[2022-07-17] MEDS: NS 1,000 ML IV SCH (01:00)
[2022-07-17] MEDS: ACETAMINOPHEN TAB 650MG DOSE (2X325MG) PO PRN (01:49)
[2022-07-17] MEDS: cefTRIAXone SOD 2 GM in D5W MINI-BAG PLUS 50 ML IV SCH (05:06)
[2022-07-17] MEDS: HEPARIN SOD (PORCINE) 5000UNITS/ML 1ML VIAL/SYRINGE SQ SCH (05:06)
[2022-07-17 06:00] VITALS: BP 143/88
[2022-07-17 06:55] LABS: BASO # 0.1 10^3/uL (0.0-0.2); BASO % 0.3 % (0.0-1.0); EOS # 0.1 10^3/uL (0.0-0.5); EOS % 0.8 % (0.0-3.0); HEMATOCRIT 33.2 % (36.0-47.0); HEMOGLOBIN 10.7 g/dl (12.0-15.5); LYMPH # 2.6 10^3/uL (1.5-5.0); LYMPH % 16.8 % (24.0-44.0); MEAN CORPUSCULAR HEMOGLOBIN 30.4 pg (27.0-33.0); MEAN CORPUSCULAR HGB CONC 32.2 g/dl (32.0-36.5); MEAN CORPUSCULAR VOLUME 94.3 fl (80.0-96.0); MONO # 1.1 10^3/uL (0.0-0.8); MONO % 7.4 % (2.0-8.0); NEUTROPHILS # 11.5 10^3/uL (1.5-8.5); NEUTROPHILS % 74.1 % (36.0-66.0); PLATELET COUNT, AUTOMATED 114 10^3/uL (150-450); RED BLOOD COUNT 3.52 10^6/uL (4.00-5.40); WHITE BLOOD COUNT 15.5 10^3/uL (4.0-10.0)
[2022-07-17 07:04] LABS: ALBUMIN 2.4 G/DL (3.2-5.2); ALKALINE PHOSPHATASE 106 U/L (46-116); ALT/SGPT 19 U/L (7.0-40); AST/SGOT 24 U/L (<34); BILIRUBIN,TOTAL 0.3 MG/DL (0.3-1.2); BLOOD UREA NITROGEN < 5 MG/DL (9-23); CALCIUM LEVEL 7.2 MG/DL (8.5-10.1); CARBON DIOXIDE LEVEL 22 MMOL/L (20-31); CHLORIDE LEVEL 114 MMOL/L (98-107); CREATININE FOR GFR 0.59 MG/DL (0.55-1.30); GLOMERULAR FILTRATION RATE > 60.0 (>60); GLUCOSE, FASTING 101 MG/DL (60-100); MAGNESIUM LEVEL 1.9 MG/DL (1.8-2.4); POTASSIUM SERUM 4.2 MMOL/L (3.5-5.1); SODIUM LEVEL 146 MMOL/L (136-145); TOTAL PROTEIN 5.9 G/DL (5.7-8.2)
[2022-07-17] MEDS ORDERED: LEVO1TAB40 PO (08:43)
== END 2022-07-17 11:00 | disposition home or self-care (01) | DRG 720 ==
LOC: M ED 12:50 → M ED INP 18:07 → M MS5PR 21:35
PROVIDERS: ADMIT Family Medicine; ATTEND Family Medicine
DX: A41.9 Sepsis, unspecified organism (principal); N12 Tubulo-interstitial nephritis, not specified as acute or chronic; F17.210 Nicotine dependence, cigarettes, uncomplicated; B96.20 Unspecified Escherichia coli [E. coli] as the cause of diseases classified elsewhere; Z20.822 Contact with and (suspected) exposure to COVID-19; Z79.2 Long term (current) use of antibiotics; Z79.52 Long term (current) use of systemic steroids; Z79.899 Other long term (current) drug therapy

== ENCOUNTER 2023-02-02 20:14 | Emergency (ER) | payer SELFPAY ==
[~2023-02-02] VITALS: Ht 157.5 cm; Wt 90.9 kg
[~2023-02-02 20:14] MED LIST changes: +IBUP-1720 PO; +IBUP200T46 PO; +LEVO1TAB40 PO
[2023-02-02 21:02] LABS: BASO # 0.1 10^3/uL (0.0-0.2); BASO % 0.3 % (0.0-1.0); EOS # 0.2 10^3/uL (0.0-0.5); EOS % 1.4 % (0.0-3.0); HEMATOCRIT 37.7 % (36.0-47.0); HEMOGLOBIN 12.9 g/dl (12.0-15.5); LYMPH # 3.3 10^3/uL (1.5-5.0); LYMPH % 22.3 % (24.0-44.0); MEAN CORPUSCULAR HEMOGLOBIN 31.9 pg (27.0-33.0); MEAN CORPUSCULAR HGB CONC 34.2 g/dl (32.0-36.5); MEAN CORPUSCULAR VOLUME 93.1 fl (80.0-96.0); MONO # 0.8 10^3/uL (0.0-0.8); MONO % 5.2 % (2.0-8.0); NEUTROPHILS # 10.4 10^3/uL (1.5-8.5); NEUTROPHILS % 70.5 % (36.0-66.0); PLATELET COUNT, AUTOMATED 150 10^3/uL (150-450); RED BLOOD COUNT 4.05 10^6/uL (4.00-5.40); WHITE BLOOD COUNT 14.7 10^3/uL (4.0-10.0)
[2023-02-02 21:27] LABS: CK-MB VALUE MASS < 1.0 NG/ML (<3.6); LIPASE 25 U/L (12-53)
[2023-02-02 21:29] LABS: ALBUMIN 3.3 G/DL (3.2-5.2); ALKALINE PHOSPHATASE 82 U/L (46-116); ALT/SGPT 12 U/L (7.0-40); AST/SGOT 10 U/L (<34); BILIRUBIN,DIRECT < 0.1 MG/DL (<0.4); BILIRUBIN,TOTAL 0.2 MG/DL (0.3-1.2); BLOOD UREA NITROGEN 10 MG/DL (9-23); CALCIUM LEVEL 8.4 MG/DL (8.5-10.1); CARBON DIOXIDE LEVEL 29 MMOL/L (20-31); CHLORIDE LEVEL 109 MMOL/L (98-107); CPK CREATINE PHOSPHOKINASE 61 U/L (34-145); CREATININE FOR GFR 0.55 MG/DL (0.55-1.30); GLOMERULAR FILTRATION RATE > 60.0 (>60); GLUCOSE, FASTING 108 MG/DL (60-100); MB/CK RELATIVE INDEX 1.63 (< OR =4); POTASSIUM SERUM 3.6 MMOL/L (3.5-5.1); SODIUM LEVEL 143 MMOL/L (136-145); TOTAL PROTEIN 6.4 G/DL (5.7-8.2)
[2023-02-02 21:31] LABS: THYROID STIMULATING HORMONE 3.293 uIU/ML (0.55-4.78)
[2023-02-02] MEDS ORDERED: LORazepam 0.5 MG TAB PO ONE (22:40)
[2023-02-02 23:57] LABS: CK-MB VALUE MASS < 1.0 NG/ML (<3.6)
[2023-02-03] LABS: CPK CREATINE PHOSPHOKINASE 54 U/L (34-145); MB/CK RELATIVE INDEX 1.85 (< OR =4)
[2023-02-03 01:30] VITALS: BP 134/85; TEMP 98.3; O2SAT 98
== END 2023-02-03 02:11 | disposition home or self-care (01) ==
LOC: M ED 20:14
DX: F41.0 Panic disorder [episodic paroxysmal anxiety] (principal); F32.A Depression, unspecified; F43.10 Post-traumatic stress disorder, unspecified; F17.200 Nicotine dependence, unspecified, uncomplicated; Z79.899 Other long term (current) drug therapy

== ENCOUNTER → 2023-08-25 | Outpatient (REF) | LOC: M EMP 11:22 | PROVIDERS: ATTEND Family Medicine | DX: Z11.52 Encounter for screening for COVID-19 (principal) ==

== ENCOUNTER 2023-09-03 19:49 | Emergency (ER) | payer OTHER, SELFPAY ==
[~2023-09-03] VITALS: Ht 157.5 cm; Wt 95.6 kg
[2023-09-03] MEDS ORDERED: IBUP-1022 PO (22:45)
[2023-09-03] MEDS: IBUPROFEN 600MG TAB PO ONE (22:48)
[2023-09-03 22:59] VITALS: BP 127/71; TEMP 96; O2SAT 96
== END 2023-09-03 23:08 | disposition home or self-care (01) ==
LOC: M ED 19:49
DX: S80.01XA Contusion of right knee, initial encounter (principal); Y92.410 Unspecified street and highway as the place of occurrence of the external cause; Y93.9 Activity, unspecified; Y99.9 Unspecified external cause status; W19.XXXA Unspecified fall, initial encounter; F17.290 Nicotine dependence, other tobacco product, uncomplicated; F12.10 Cannabis abuse, uncomplicated; Z79.1 Long term (current) use of non-steroidal anti-inflammatories (NSAID); Z79.899 Other long term (current) drug therapy

== ENCOUNTER 2023-11-06 11:50 | Emergency (ER) | payer OTHER ==
[~2023-11-06] VITALS: Ht 157.5 cm; Wt 93.2 kg
[~2023-11-06 11:50] MED LIST changes: +IBUP-1022 PO
[2023-11-06] MEDS ORDERED: ALBU8.5H (12:06)
[2023-11-06] MEDS ORDERED: SERT50TA29 (12:06)
[2023-11-06] MEDS: IBUPROFEN 600MG TAB PO ONE (13:19)
[2023-11-06 13:36] VITALS: BP 125/61; TEMP 95.5; O2SAT 100
== END 2023-11-06 13:35 | disposition home or self-care (01) ==
LOC: M ED 11:50
DX: S63.522A Sprain of radiocarpal joint of left wrist, initial encounter (principal); Y92.9 Unspecified place or not applicable; Y93.9 Activity, unspecified; Y99.0 Civilian activity done for income or pay; G51.0 Bell's palsy; F17.210 Nicotine dependence, cigarettes, uncomplicated; Z79.51 Long term (current) use of inhaled steroids; Z79.1 Long term (current) use of non-steroidal anti-inflammatories (NSAID)

== ENCOUNTER 2023-12-28 05:32 | Emergency (ER) | payer MEDICAID, OTHER ==
[~2023-12-28] VITALS: Ht 157.5 cm; Wt 92.4 kg
[~2023-12-28 05:32] MED LIST changes: +ALBU8.5H; +SERT50TA29
[2023-12-28] MEDS: NAPROXEN 250 MG TAB PO ONE (07:27)
[2023-12-28 07:41] VITALS: BP 151/82
[2023-12-28 07:42] VITALS: TEMP 97.7; O2SAT 98
[2023-12-28] MEDS: PSEUDOEPHEDRINE 30 MG TAB PO ONE (07:46)
[2023-12-28] MEDS ORDERED: NAPR-837 PO (08:05)
[2023-12-28] MEDS ORDERED: PSEU30TA87 PO (08:05)
[2023-12-28] MEDS ORDERED: FLON27.5 NARES (08:05)
== END 2023-12-28 08:13 | disposition home or self-care (01) ==
LOC: M ED 05:32
DX: H65.01 Acute serous otitis media, right ear (principal); H92.01 Otalgia, right ear; F17.200 Nicotine dependence, unspecified, uncomplicated; G51.0 Bell's palsy; Z79.899 Other long term (current) drug therapy; Z79.1 Long term (current) use of non-steroidal anti-inflammatories (NSAID)

== ENCOUNTER 2024-02-07 19:50 | Emergency (ER) | payer OTHER ==
[~2024-02-07] VITALS: Ht 157.5 cm; Wt 89.7 kg
[~2024-02-07 19:50] MED LIST changes: +FLON27.5 NARES; +PSEU30TA87 PO
[2024-02-07 19:57] VITALS: BP 137/84; TEMP 96.7; O2SAT 100
== END 2024-02-07 21:27 | disposition left against medical advice (07) ==
LOC: M ED 19:50
DX: Z53.21 Procedure and treatment not carried out due to patient leaving prior to being seen by health care provider (principal)

== ENCOUNTER 2024-04-25 15:32 | Emergency (ER) | payer OTHER ==
[~2024-04-25] VITALS: Ht 157.5 cm; Wt 89.1 kg
[2024-04-25] MEDS: ACETAMINOPHEN 500 MG TAB PO ONE (18:47)
[2024-04-25] MEDS: NS (Normal Saline) 0.9% 1,000 ML IV ONE (18:48)
[2024-04-25] MEDS: METOCLOPRAMIDE INJ 10MG/2ML VIAL IV ONE (18:48)
[2024-04-25] MEDS: KETOROLAC 30 MG/ML 1ML VIAL IV ONE (18:48)
[2024-04-25 20:08] VITALS: BP 128/62; TEMP 97.8; O2SAT 100
== END 2024-04-25 20:09 | disposition home or self-care (01) ==
LOC: M ED 15:32
DX: R51.9 Headache, unspecified (principal); F17.210 Nicotine dependence, cigarettes, uncomplicated; F12.10 Cannabis abuse, uncomplicated; F10.10 Alcohol abuse, uncomplicated; Z79.899 Other long term (current) drug therapy
CPT/HCPCS: 70450; 84702; 87428; 96361; 96374; 99284; J1885; J2765